=== PATIENT | female | born 1980 | race Caucasian/White ===

== ENCOUNTER → 2018-07-15 | Outpatient (CLI) | payer BC ==
--- NOTE | 2018-07-19 11:41 | WOMENS IMAGING REPORT ---
EXAM DESCRIPTION: 3D SCREENING MAMMO BILAT COMPLETED DATE/TIME: 07/15/2018 10:12 am REASON FOR STUDY: ROUTINE SCREENING MAMMOGRAM Z12.31 Z12.31 ENCNTR SCREEN MAMMOGRAM FOR MALIGNANT N EOPLASM OF MARCUS COMPARISON: 08/31/2015. TECHNIQUE: Standard craniocaudal and mediolateral oblique views of each breast recorded using digita l acquisition and breast tomosynthesis. LIMITATIONS: None. FINDINGS: Findings present which are benign by mammographic criteria. No suspicious masses, calcifi cations or architectural distortion. Pertinent benign findings: Stable calcifications in the right breast. Read with the assistance of CAD. .[facility] - R2 Cenova Version 1.3 .[facility] - R2 Cenova Version 1.3 .[facility] - R2 Cenova Version 2.4 .[facility] [place] - R2 Cenova Version 2.4 .[facility] - R2 [employer] Version 9.2 Benign mammographic findings may include one or more of the following: Smooth masses, popcorn/rim/co arse calcifications, asymmetries, post-procedure changes, and lesions with long-standing stability. IMPRESSION: BENIGN MAMMOGRAPHIC FINDINGS. BIRADS 2 BREAST DENSITY: c. The breasts are heterogeneously dense, which may obscure small masses. BIRAD: 2 BENIGN FINDING(S) RECOMMENDATION: RECOMMENDATION: ROUTINE SCREENING COMMENT: The patient has been notified of the results by letter per SA requirements. Additional no tification policies are in place for contacting patient with suspicious or incomplete findings. Quality ID #[id number]: The [employer] recommends an annual screening mammogram for women aged 40 years or over. This facility utilizes a reminder system to ensure that all patients receive reminder letters, and/or direct phone calls for appointments. This includes reminders for routine scr eening mammograms, diagnostic mammograms, or other Breast Imaging Interventions when appropriate. Th is patient will be placed in the appropriate reminder system. The [employer] (ACR) has developed recommendations for screening MRI of the breast s in certain patient populations, to be used in conjunction with mammography. Breast MRI surveillanc e may be appropriate for women with more than 20% lifetime risk of developing breast cancer as deter mined by genetic testing, significant family history of the disease, or history of mantle radiation f or Hodgkins Disease. ACR Practice Guidelines 2008. DBT Technology DBT is a type of tomographic mammography. With conventional mammography, overlapping breast tissue ma y make lesions difficult to detect, even with good compression. DBT uses an x-ray tube that rotates a round the breast, taking images at different angles. These images are then combined to create thin sl ices of the breast that the radiologist can view as a 3D reconstruction. The [employer] unit can perform full-field digital mammograms (2D imaging); or DBT (3D imaging); or both, in a combination mode that quickly performs both the mammogram and the tomosynthesis scan while the breast is still compressed. PQRS 6045F: Fluoroscopic imaging is not utilized for breast tomosynthesis. TECHNICAL DOCUMENTATION: FINDING NUMBER: (1) ASSESSMENT: (1) JOB ID: [id number] [employer]- All Rights Reserved Reading location - IP/workstation name: [email or web address]
== END ==
LOC: WI 10:52
PROVIDERS: ATTEND Physician Assistant
DX: Z12.31 Encounter for screening mammogram for malignant neoplasm of breast (principal)
CPT/HCPCS: 77063; 77067

== ENCOUNTER 2020-02-12 20:34 | Emergency (ER) | payer BC ==
--- NOTE | 2020-02-12 20:59 | ER Document Report ---
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 She states when she awoke this morning she was not feeling well and had a migraine. She states that she stayed in bed most of the day. She reports that as the day progressed she began developing chest pain in the left anterior chest. She states it radiates to the left trapezius and left shoulder. States that she still having some discomfort down the left upper chest but mostly just feels unwell. Admits to some associated nausea. Denies any significant family history of CAD. No personal history. Does not smoke. I have treated and performed a rapid initial assessment of this patient. A comprehensive ED assessment and evaluation of the patient, analysis of test results and completion of medical decision making process will be conducted by additional ED providers. PHYSICAL EXAMINATION: GENERAL: Well-appearing, well-nourished and in no acute distress. A&Ox4. Answers questions appropriately. TRAVEL OUTSIDE OF THE [place] IN LAST 30 DAYS: No - Related Data Allergies/Adverse Reactions: No Known Drug Allergies Allergy (Unknown, Verified 12/05/11 09:21) relish/sweet pickles Allergy (Severe, Uncoded 12/01/11 14:10) swelling of throat, resp distress Past Medical History - Social History Chew tobacco use (# tins/day): No Frequency of alcohol use: None Drug Abuse: None - Past Medical History Cardiac Medical History: Reports: Hx Hypertension - PIH, no meds at present Denies: Hx Coronary Artery Disease, Hx Heart Attack Pulmonary Medical History: Reports: Hx Pneumonia - during 34th week of 2nd Denies: Hx Asthma, Hx Bronchitis, Hx COPD Neurological Medical History: Denies: Hx Cerebrovascular Accident, Hx Seizures Musculoskeltal Medical History: Denies Hx Arthritis Past Surgical History: Denies: Hx Hysterectomy, Hx Pacemaker - Immunizations Hx Diphtheria, Pertussis, Tetanus Vaccination: No Physical Exam - Vital signs Vitals: Temp Pulse Resp BP Pulse Ox 98.4 F 80 18 147/92 H 100 02/12/20 20:49 02/12/20 20:49 02/12/20 20:49 02/12/20 20:49 02/12/20 20:49 Course - Vital Signs Vital signs: Temp Pulse Resp BP Pulse Ox 98.4 F 80 18 147/92 H 100 02/12/20 20:51 02/12/20 20:49 02/12/20 20:49 02/12/20 20:49 02/12/20 20:49 Doctor's Discharge - Discharge Referrals: CHEYENNE ANTHONY PA-C [Primary Care Provider] - Follow up as needed
[2020-02-12 21:29] LABS: ABSOLUTE BASOPHILS # (AUTO) 0.1 10^3/uL (0.0-0.2); ABSOLUTE EOSINOPHILS # (AUTO) 0.1 10^3/uL (0.0-0.6); ABSOLUTE MONOCYTES (AUTO) 0.5 10^3/uL (0.1-1.4); EOSINOPHILS % (AUTO) 1.1 % (0-6); HEMOGLOBIN 14.3 g/dL (12.0-15.5); TOTAL CELLS COUNTED % (AUTO) 100 %; WHITE BLOOD COUNT 7.4 10^3/uL (4.0-10.5)
[2020-02-12 21:34] LABS: INTERNATIONAL RATION (INR) 0.85; PROTHROMBIN TIME 11.8 SEC (11.4-15.4)
[2020-02-12 21:35] LABS: PARTIAL THROMBOPLASTIN TIME 28.1 SEC (23.5-35.8)
[2020-02-12 21:37] LABS: ABSOLUTE NEUT (AUTO) 3.7 10^3/uL (1.7-8.2); BASOPHILS % (AUTO) 0.8 % (0-2); LYMPHOCYTES % (AUTO) 40.3 % (13-45); MEAN CORPUSCULAR HEMOGLOBIN 30.4 pg (27.0-33.4); MEAN CORPUSCULAR HGB CONC 34.2 g/dL (32.0-36.0); MEAN CORPUSCULAR VOLUME 89 fl (80-97); MONOCYTES % (AUTO) 7.4 % (3-13); PLATELET COUNT 268 10^3/uL (150-450); RED BLOOD COUNT 4.72 10^6/uL (3.72-5.28); RED CELL DISTRIBUTION WIDTH 13.8 % (11.5-14.0); SEGMENTED NEUTROPHILS % (AUTO) 50.4 % (42-78)
[2020-02-12 21:46] LABS: ALBUMIN 4.4 g/dL (3.5-5.0); ALKALINE PHOSPHATASE 42 U/L (38-126); ASPARTATE AMINO TRANSFERASE 21 U/L (14-36); BILIRUBIN,TOTAL 0.3 mg/dL (0.2-1.3); BLOOD UREA NITROGEN 17 mg/dL (7-20); CALCIUM 9.9 mg/dL (8.4-10.2); CARBON DIOXIDE 30 mmol/L (22-30); CHLORIDE 103 mmol/L (98-107); CREATINE KINASE 67 U/L (30-135); GLUCOSE 92 mg/dL (75-110); POTASSIUM 4.3 mmol/L (3.6-5.0); TOTAL PROTEIN 7.4 g/dL (6.3-8.2)
[2020-02-12 21:52] LABS: ANION GAP 5 (5-19)
--- NOTE | 2020-02-12 22:01 | RADIOLOGY REPORT (SQ) ---
EXAM DESCRIPTION: XR CHEST 1 VIEW COMPLETED DATE/TME: 02/12/2020 20:57 CLINICAL HISTORY: 39 years, Female, cp COMPARISON: None. NUMBER OF VIEWS: 1 TECHNIQUE: Portable chest LIMITATIONS: None. FINDINGS: Heart size is normal. Lungs are clear. No pneumothorax IMPRESSION: Negative chest copyright 2011 [employer]- All Rights Reserved
[2020-02-12] MEDS ORDERED: KETOROLAC TROMETHAMINE 60 MG/2 ML SDV IM ONE (23:41)
--- NOTE | 2020-02-12 23:48 | ER Document Report ---
ED Cardiac - General Chief Complaint: Chest Pain Stated Complaint: CHEST PAIN AND LEFT SHOULDER PAIN Time Seen by Provider: 02/12/20 23:34 Primary Care Provider: CHEYENNE ANTHONY PA-C [Primary Care Provider] - Follow up as needed Mode of Arrival: Ambulatory Information source: Patient Notes: 39-year-old female past medical history significant for migraines, Chiari malfo rmation, "sticky valve" presents to the emergency room complaining of chest pain that started around 11 AM this morning. Describes it as a heaviness in her chest that radiates to her left shoulder. States is been intermittent. Denies any nausea, vomiting, no diaphoresis. No recent trauma or injury. Patient also states she woke up this morning with a migraine has vomited once. States she has been taking Excedrin Migraine and Naprosyn with minimal relief. Last dose of naproxen was at 6:30 PM. Patient states she is being followed by cardiology for the "leaky valve" with yearly echocardiograms. States she was cleared a couple years ago by cardiology and has not been seen since. Denies any family cardiac history. TRAVEL OUTSIDE OF THE [place] IN LAST 30 DAYS: No - Related Data Allergies/Adverse Reactions: No Known Drug Allergies Allergy (Unknown, Verified 12/05/11 09:21) relish/sweet pickles Allergy (Severe, Uncoded 12/01/11 14:10) swelling of throat, resp distress Past Medical History - General Information source: Patient - Social History Smoking Status: Never Smoker Chew tobacco use (# tins/day): No Frequency of alcohol use: Occasional Drug Abuse: None Family History: Reviewed & Not Pertinent - Past Medical History Cardiac Medical History: Reports: Hx Hypertension - PIH, no meds at present Denies: Hx Coronary Artery Disease, Hx Heart Attack Pulmonary Medical History: Reports: Hx Pneumonia - during 34th week of 2nd Denies: Hx Asthma, Hx Bronchitis, Hx COPD Neurological Medical History: Denies: Hx Cerebrovascular Accident, Hx Seizures Musculoskeletal Medical History: Denies Hx Arthritis Past Surgical History: Denies: Hx Hysterectomy, Hx Pacemaker - Immunizations Hx Diphtheria, Pertussis, Tetanus Vaccination: No Review of Systems - Review of Systems Constitutional: No symptoms reported EENT: No symptoms reported Cardiovascular: Chest pain Respiratory: No symptoms reported Gastrointestinal: Nausea, Vomiting Musculoskeletal: No symptoms reported Skin: No symptoms reported Neurological/Psychological: Headaches -: Yes All other systems reviewed and negative Physical Exam - Vital signs Vitals: Temp Pulse Resp BP Pulse Ox 98.4 F 80 18 147/92 H 100 02/12/20 20:49 02/12/20 20:49 02/12/20 20:49 02/12/20 20:49 02/12/20 20:49 - Notes Notes: VITAL SIGNS: Within normal limits. GENERAL: No acute distress, non-toxic appearance. HEAD: Normal with no signs of head trauma. EYES: PERRLA, EOMI, conjunctiva normal, no discharge. EARS: Hearing grossly intact. NOSE: Normal. THROAT: Oropharynx is normal. NECK: Normal range of motion, no tenderness, supple, no lymphadenopathy, No adenopathy, no JVD. CHEST: Clear breath sounds bilaterally. No wheezes, rales, or rhonchi. Chest wall nontender to palpation. CARDIAC: Regular rate and rhythm. S1 and S2, without murmurs, gallops, or rubs. VASCULAR: No Edema. Peripheral pulses normal and equal in all extremities. ABDOMEN: Normal and soft with no tenderness, no masses or pulsatile masses. GASTROINTESTINAL: Bowel sounds normal GENITOURINARY: Normal, No tenderness LYMPATHTIC: No lymphadenopathy noted. MUSCULOSKELETAL: Good range of motion of all major joints. Extremities without clubbing, cyanosis or edema. NEUROLOGICAL: Alert and oriented x 3. No focal sensory or strength deficits. Speech normal. Follows commands appropriately. PSYCHIATRIC: Normal Affect, judgement and mood. SKIN: Normal appearance with no rashes or lesions. Course - Re-evaluation Re-evalutation: 02/12/20 23:48 Patient is resting comfortably no acute distress noted at this time. Reviewed labs, chest x-ray, EKG results with the patient and family. Will get second troponin, IM Toradol and reevaluate. HEART Score: History 0 ECG 0 Age 0 Risk Factors 1 Troponin 0 Total: 1 If HEART score is less than 3 AND both tronponin measurments are normal, the 30 day risk of a major adverse cardiac event (all-cause mortality, myocardia infarction or need for coronary revscularization) is < 1% (Sensitivity 100%, NPV 100%). Chest pain in a patient without evidence of cardiac or other serious etiology on workup today. I discussed with patient that, based on their age, risk factors and emergency department testing today, the likelihood that their symptoms are related to a heart attack is very low (estimated risk of heart attack or over the next 30 days of less than 1%). The patient demonstrates decision making capacity and has verbalized an understanding of these risks to me. Based on this, the patient has chosen to follow-up as an outpatient. Usual chest pain return precautions reviewed. The patient states understanding and agreement with this plan. 02/13/20 00:48 Patient is resting comfortably with decreased pain. Repeat troponin within normal limits. 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 Patient was given strict return to the emergency room guidelines. Return for any new or worsening symptoms. All questions were answered. Patient verbalized understanding and agrees with plan of care. - Vital Signs Vital signs: Temp Pulse Resp BP Pulse Ox 98.4 F 80 18 147/92 H 100 02/12/20 20:51 02/12/20 20:49 02/12/20 20:49 02/12/20 20:49 02/12/20 20:49 - Laboratory Result Diagrams: 02/12/20 21:12 02/12/20 21:12 - Diagnostic Test Radiology reviewed: Reports reviewed - EKG Interpretation by Me EKG shows normal: Sinus rhythm Rate: Normal Additional EKG results interpreted by me: 02/12/20 23:47 EKG was interpreted by ED physician Dr. Lorenzo No acute STEMI Sinus rhythm Rate is [address] changes Discharge - Discharge Clinical Impression: Chest pain of unknown etiology Migraine headache Qualifiers: Migraine type: unspecified Status migrainosus presence: without status migrainosus Intractability: not intractable Qualified Code(s): G43.909 - Migraine, unspecified, not intractable, without status migrainosus Condition: Stable Disposition: HOME, SELF-CARE Instructions: Chest Pain of Unclear Cause ([facility]), Migraine Headache ([facility]) Additional Instructions: Can take Tylenol and or Motrin as needed for pain. 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 Return to the emergency room for any new or worsening symptoms. Referrals: CHEYENNE ANTHONY PA-C [Primary Care Provider] - Follow up as needed
[2020-02-13 01:11] VITALS: BP 109/77
--- NOTE | 2020-02-13 09:40 | EKG REPORT ---
SEVERITY:- NORMAL ECG - SINUS RHYTHM : Confirmed by: Jose Enrique Mizra MD 13-Feb-2020 09:39:54
== END 2020-02-13 01:10 | disposition home or self-care (01) ==
LOC: ER 20:34
DX: G43.909 Migraine, unspecified, not intractable, without status migrainosus (principal); R07.9 Chest pain, unspecified; M25.512 Pain in left shoulder
CPT/HCPCS: 93005; 99285; 96372; 36415; 82550; 85025; 85610; 85730; 80053; 84484; 71045; 93010; J1885

== ENCOUNTER → 2020-04-07 | Outpatient (CLI) | payer BC ==
--- NOTE | 2020-04-07 13:12 | RADIOLOGY REPORT (SQ) ---
EXAM DESCRIPTION: CHEST PA/LATERAL IMAGES COMPLETED DATE/TIME: 04/07/2020 12:45 pm REASON FOR STUDY: MILD INTERMITTENT ASTHMA, UNCOMPLICATED COMPARISON: 02/12/2020 EXAM PARAMETERS: NUMBER OF VIEWS: two views TECHNIQUE: Digital Frontal and Lateral radiographic views of the chest acquired. RADIATION DOSE: NA LIMITATIONS: none FINDINGS: LUNGS AND PLEURA: No opacities, masses or pneumothorax. No pleural effusion. MEDIASTINUM AND HILAR STRUCTURES: No masses or contour abnormalities. HEART AND VASCULAR STRUCTURES: Heart normal size. No evidence for failure. BONES: No acute findings. HARDWARE: None in the chest. OTHER: No other significant finding. IMPRESSION: NO SIGNIFICANT RADIOGRAPHIC FINDING IN THE CHEST. TECHNICAL DOCUMENTATION: JOB ID: [id number] 2010 [employer]- All Rights Reserved Reading location - IP/workstation name: [email or web address]
== END ==
LOC: OD 12:28
PROVIDERS: ATTEND Physician Assistant
DX: J45.20 Mild intermittent asthma, uncomplicated (principal)
CPT/HCPCS: 71046